=== PATIENT | female | born 1940 | race Caucasian/White ===

== ENCOUNTER 2017-06-01 14:22 | Observation (INO) ==
[2017-06-01 14:45] VITALS: BMI 23.4
[2017-06-01] MEDS ORDERED: SALINE FLUSH 10ml SYRINGE ONE (14:51)
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
--- NOTE | 2017-06-01 16:34 | Nuclear Medicine Report ---
Indication: Chest Pain PROCEDURE: NM pul vent and perfuse: Comparison: Chest x-ray dated May 31, 2017 Technique: The patient received 41.4mCi aerosolized Tc-99m DTPA prior to obtaining ventilation images. Next, 6.1 mCi of Tc-99m MAA was administered intravenously prior to obtaining perfusion images in the standard 8 views. A chest x-ray from 03/31/2017 was reviewed. Findings: Ventilation images demonstrate radiotracer uptake throughout both lungs with a relative decrease in uptake both upper lobes. Perfusion images also demonstrate good uptake bilaterally. There is a relative decrease in radiotracer uptake in both upper lobes which correspond to defects seen on the ventilation images. These are subsegmental areas of perfusion deficit. There are no segmental perfusion defects. Impression: Low probability lung ventilation/perfusion scan for pulmonary embolus (approximately 15% probability). .
[2017-06-01 17:13] VITALS: BP 123/59; RESP 20; TEMP 99.1; O2SAT 95
[2017-06-01 17:47] VITALS: PULSE 102
[2017-06-01] MEDS ORDERED: KETOROLAC 30 MG/ML INJECTION IVP PRN (18:08)
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
--- NOTE | 2017-06-02 08:08 | XRay Report ---
INDICATION: chest pain PROCEDURE: CHEST 2-VIEWS UPRIGHT (PA & LAT) Encounter: Initial COMPARISON: May 05, 2017 FINDINGS: New airspace consolidation in the left lower lobe with a small left effusion. Right lung is grossly clear. No pneumothorax. Cardiac silhouette is mildly enlarged, new from the prior study. Mediastinal contours and pulmonary vascularity are within normal limits. Impression: 1. Left lower lobe pneumonia or aspiration with a small effusion. 2. Enlarged cardiac silhouette could represent pericardial effusion given the interval change. .
--- NOTE | 2017-06-02 10:45 | Echocardiogram ---
DATE OF PROCEDURE June 01, 2017 This is a two-dimensional echo with spectral Doppler, color-flow and M-mode. It was obtained in a patient with chest pain and shortness of breath. Left atrial dimension is normal. Left ventricle end-diastolic dimension is normal. Left ventricular wall thickness is normal. LV systolic function is normal with ejection fraction of 63%. Right atrium is normal. Right ventricle is normal. Aortic root dimension is normal. Mitral valve is morphologically normal with trace of mitral regurgitation. Aortic valve is a trileaflet structure with no stenosis or insufficiency. Tricuspid valve shows trace of tricuspid regurgitation with normal estimated pulmonary artery systolic pressure of 27. Pulmonary valve shows no pulmonary insufficiency. There is a large pericardial effusion with no right ventricular diastolic collapse. Right atrium appears to have mild collapsing. IMPRESSION 1. Normal LV systolic function with ejection fraction of about 63%. 2. Large pericardial effusion with early signs of tamponade with mild collapsing of the right atrial free wall. 3. Trace of mitral regurgitation. 4. Trace of tricuspid regurgitation with normal estimated pulmonary artery systolic pressure of 27. MTDD
== END 2017-06-01 19:05 | disposition short-term general hospital (02) ==
LOC: MED
PROVIDERS: ADMIT Internal Medicine Cardiovascular Disease; ATTEND Internal Medicine Cardiovascular Disease

== ENCOUNTER 2017-07-26 13:04 | Observation (INO) ==
[2017-07-26 13:36] VITALS: BMI 22.4
--- NOTE | 2017-07-26 15:30 | XRay Report ---
Indication: left chest pain PROCEDURE: XR chest w decubitus: Encounter: Initial Comparison: July 21, 2017 Findings: Interval increase in a small to moderate left pleural effusion with left lower lobe compressive atelectasis. Right lung is clear. No pneumothorax. Heart size and mediastinal contours are stable. Pulmonary vascularity is unchanged. The decubitus view shows the fusion to be freely layering. Impression: Increasing small to moderate left effusion. .
[2017-07-26] MEDS: PANTOPRAZOLE 20 MG TABLET PO SCH (18:38)
[2017-07-26] MEDS: IBUPROFEN 800 MG TABLET PO PRN (21:49)
[2017-07-26] MEDS: SALINE FLUSH 10ml SYRINGE IV PRN (21:50)
[2017-07-27 00:44] VITALS: RESP 16
[2017-07-27] MEDS: SALINE FLUSH 10ml SYRINGE IV PRN (04:13)
[2017-07-27] MEDS: PANTOPRAZOLE 20 MG TABLET PO SCH (06:13)
[2017-07-27] MEDS: IBUPROFEN 800 MG TABLET PO PRN (06:16)
[2017-07-27 07:24] VITALS: BP 130/65; TEMP 97.3; O2SAT 97
[2017-07-27 08:07] VITALS: PULSE 83
--- NOTE | 2017-07-27 09:03 | Consultation ---
DATE OF CONSULTATION 07/26/2017. HISTORY OF PRESENT ILLNESS This patient is 76 years old. This patient was seen at [facility] emergency room on 05/05/2017 with a history that she had chest pain when she would take a deep breath. Chest x-ray at this time did not show any pleural effusion. Chest x-ray was normal. EKG was normal. The patient was thought at this time to probably have costochondritis. The patient was hospitalized at [facility] on 06/01/2017. An echocardiogram performed at this time showed a large pericardial effusion with the beginning of tamponade. The patient was having chest pain at this time which was thought to be secondary to the pericardial effusion. The patient had some dyspnea which was thought to be secondary to the pericardial effusion. The patient was transferred to [place] to undergo a pericardial window. The patient stated at this time that her chest pain she was having was worse with deep inspiration. The patient states that she did undergo a pericardial window on 06/02/[address] Arellano. This was performed at [facility]. The patient came into [facility] for emergency room visit on 2016. The patient had a chief complaint of left-sided abdominal pain at this time. These symptoms had begun on 07/19/2017. The patient states today that this left upper quadrant abdominal pain was worse when she took a deep breath. The patient did undergo a chest x-ray on 07/21/2017 which did show a small left pleural effusion which was increased compared to the previous chest x-ray. The patient had a CT scan of the abdomen and pelvis at this time which showed no acute disease process. The emergency room provider did talk with the patient about undergoing an imaging study to look for pulmonary embolism but the patient did decline this. The emergency room provider discussed the case with Dr. Lagos. Dr. Lagos did make plans for the patient to follow up with him in the office. Some nonsteroidal anti-inflammatory therapy was started in the emergency room. The patient was then sent home from the emergency room with prescriptions for naproxen and [place]. The patient states today that her left upper quadrant abdominal pain and left back pain which is worse with deep breaths has been improving every day since . This pain is even less today than it was yesterday. The patient is not completely pain-free but the pain is improving. The patient states she did go in and have an office visit with Dr. Lagos today. She told Dr. Lagos that her pain was less. The patient states that Dr. Lagos was ready to send her out of the office when he was informed of some echocardiogram findings from the office visit today. He then decided to admit the patient to [facility]. The echocardiogram findings are unknown to me at this time. The patient did undergo a chest x-ray today following admission to [facility]. This does show a small to moderate left pleural effusion. The left pleural effusion is a little bit bigger today than it was on 07/21/2017. The patient is not having any dyspnea or shortness breath or difficulty breathing at this time. Oxygen saturations are good on room air. Oxygen saturation was 98% on room air at the time of admission to the hospital today. PHYSICAL EXAMINATION VITAL SIGNS: Temperature is 96.9 degrees Fahrenheit temporal. Pulse is 78. Respiratory rate is 18. Blood pressure is 123/62. Oxygen saturation at the time of admission to the hospital was 98% on room air. Most recent oxygen saturation was 94% on room air. CHEST: The patient has slightly decreased breath sounds at her left lung base at auscultation of the chest. There are no wheezes, rales or rhonchi. IMAGING DATA The patient did undergo a chest x-ray today at [facility]. This shows a small to moderate left pleural effusion. Decubitus views show some layering of the fluid. The small to moderate left pleural effusion is a little bit larger than it was on the chest x-ray performed on 07/21/2017. IMPRESSION 1. Small left pleural effusion. 2. Left upper quadrant abdominal pain and left back pain which is worse when the patient takes a deep breath. RECOMMENDATION The patient will undergo further evaluation by Dr. Lagos tomorrow. I would be happy to perform ultrasound-guided left thoracentesis if this would be useful in the further evaluation and treatment of this patient. PATIENT EDUCATION I did inform the patient today of the nature of a thoracentesis procedure. Expected benefits of a left ultrasound-guided left thoracentesis were reviewed with her. Alternatives were reviewed. Potential risks and complications were also reviewed including bleeding and pneumothorax. ALINE
--- NOTE | 2017-07-27 12:04 | Discharge Summary ---
<Shira Perla M - Last Filed: 07/27/17 12:01> Discharge Information Date of admission: 07/26/17 13:04 Anticipated date of discharge: 07/27/17 Attending Physician: Adarsh Lagos MD Primary care physician: Shaquille Spring MD Consults: 07/26/17 15:42 Physician Consult [CONS] Routine Consulting Provider: Xavier Crawford Reason For Exam: left pleural effusion Ordering Provider has Notified Residential Property Manager: Yes - Laboratory Labs: 07/27/17 04:10 07/27/17 04:10 Laboratory Results - last 24 hr 07/26/17 07/26/17 07/26/17 15:01 15:01 15:01 WBC 8.1 RBC 4.55 Hgb 12.4 Hct 39.6 MCV 87.0 MCH 27.3 MCHC 31.3 RDW Std Deviation 46.9 Plt Count 223 D MPV 9.8 Immature Gran % (Auto) 1.0 H Neut % (Auto) 52.0 Lymph % (Auto) 38.9 Bond % (Auto) 4.9 Eos % (Auto) 2.7 Baso % (Auto) 0.5 Neut # 4.2 Lymph # 3.2 Bond # 0.4 Eos # 0.2 Baso # 0.0 Abs Immat Gran (auto) 0.08 H Turbidity < 20 Sodium 144 Potassium 4.3 Chloride 110 H Carbon Dioxide 25 Anion Gap 9 BUN 13.0 Creatinine 0.7 GFR Calculation 82 BUN/Creatinine Ratio 19 Glucose 83 Calculated Osmolality 276 Calcium 9.4 Magnesium 2.3 Total Bilirubin 0.30 Icterus Index < 2 AST 21 ALT 25 Alkaline Phosphatase 112 Troponin I < 0.012 Total Protein 7.0 Albumin 3.5 Globulin 3.5 Albumin/Globulin Ratio 1.0 L Specimen Hemolysis < 15 < 15 07/27/17 07/27/17 04:10 04:10 WBC 6.4 RBC 3.87 L Hgb 10.9 L D Hct 33.9 L D MCV 87.6 MCH 28.2 MCHC 32.2 RDW Std Deviation 45.6 Plt Count 468 H D MPV 9.3 L Immature Gran % (Auto) Neut % (Auto) Lymph % (Auto) Bond % (Auto) Eos % (Auto) Baso % (Auto) Neut # Lymph # Bond # Eos # Baso # Abs Immat Gran (auto) Turbidity < 20 Sodium 144 Potassium 4.4 Chloride 110 H Carbon Dioxide 24 Anion Gap 10 BUN 16.0 Creatinine 0.7 GFR Calculation 82 BUN/Creatinine Ratio 23 Glucose 89 Calculated Osmolality 277 Calcium 9.1 Magnesium 2.4 H Total Bilirubin Icterus Index < 2 AST ALT Alkaline Phosphatase Troponin I Total Protein Albumin Globulin Albumin/Globulin Ratio Specimen Hemolysis 92 H - Radiology Radiology: Date of Exam: 07/26/17 Ordering Provider: Shira Perla APRN Type of Exam(s): XR chest w decubitus Reason for Exam(s): left chest pain Indication: left chest pain PROCEDURE: XR chest w decubitus: Encounter: Initial Comparison: July 21, 2017 Findings: Interval increase in a small to moderate left pleural effusion with left lower lobe compressive atelectasis. Right lung is clear. No pneumothorax. Heart size and mediastinal contours are stable. Pulmonary vascularity is unchanged. The decubitus view shows the fusion to be freely layering. Impression: Increasing small to moderate left effusion. History of Present Illness HPI: Jacki is a 76 year old female who is known to Dr. Lagos with a history of pericardial effusion with pericardial window in May of 2017. She was seen in the clinic yesterday by Dr. Lagos and underwent echo which revealed trace pericardial effusion and large pleural effusion. She was admitted to observation for pericarditis and chest xray with decubitus view and surgical consultation for possible thoracentesis if indicated. Hospital Course This is a general summary of the patient's hospital course. For more details refer to the complete medical record. Hospital course: She reported left sided chest pain and was started on Ibuprofen 800mg Q8H and Protonix 20mg BID for pericarditis after being seen by Dr. Crawford. X-ray revealed small to moderate pleural effusion on the left. Dr. Crawford felt as though this could be drained or left alone based on patient's clinical presentation. Today after having 2 doses of Ibuprofen she is essentially pain free with deep breathes and activity. We will plan to follow up with outpatient chest x-ray in 2 weeks. Exam Vital signs: Temperature 97.3 F 07/27/17 07:23 Pulse Rate 83 07/27/17 08:00 Respiratory Rate 16 07/27/17 07:23 Blood Pressure 130/65 07/27/17 07:23 Pulse Oximetry 97 07/27/17 07:23 - Constitutional no acute distress, well nourished, well developed, cooperative - Routine HEENT Exam Head: Present: normocephalic ENT: Present: mucous membranes moist - Routine Neck Exam Absent: JVD, carotid bruit - Routine Chest/Breast/Axilla Exam Chest wall: Present: tenderness - Routine Respiratory Exam Present: CTA bilaterally, diminished air movement (right side). Absent: rales, wheezes - Routine Cardiovascular Exam Present: RRR, no murmur. Absent: JVD - Routine Abdominal Exam Present: soft, normoactive bowel sounds - Routine Extremities Exam Present: no edema - Routine Skin Exam Present: intact, dry, warm - Routine Neurological Exam Present: alert, oriented X3 - Routine Psychiatric Exam Present: normal affect, normal thought process Results 07/27/17 04:10 07/27/17 04:10 Cardiac Enzymes 07/26/17 07/26/17 Range/Units 15:01 15:01 AST 21 (14-36) U/L Troponin I < 0.012 (0-0.12) ng/ml CBC 07/26/17 07/27/17 Range/Units 15:01 04:10 WBC 8.1 6.4 (4.5-11.0) T/MM3 RBC 4.55 3.87 L (4.00-5.20) M/MM3 Hgb 12.4 10.9 L D (12-16) GM/DL Hct 39.6 33.9 L D (36-46) % Plt Count 223 D 468 H D (130-400) T/MM3 Neut # 4.2 (1.8-7.7) T/MM3 Lymph # 3.2 (1-4.8) T/MM3 Bond # 0.4 (0-0.8) T/MM3 Eos # 0.2 (0-0.5) T/MM3 Baso # 0.0 (0-0.2) T/MM3 Comprehensive Metabolic Panel 07/26/17 07/27/17 Range/Units 15:01 04:10 Sodium 144 144 (134-144) MEQ/L Potassium 4.3 4.4 (3.6-5) MEQ/L Chloride 110 H 110 H (98-107) MEQ/L Carbon Dioxide 25 24 (22-30) MEQ/L BUN 13.0 16.0 (7-17) MG/DL Creatinine 0.7 0.7 (0.7-1.2) MG/DL Glucose 83 89 (65-110) MG/DL Calcium 9.4 9.1 (8.4-10.2) MG/DL AST 21 (14-36) U/L ALT 25 (9-52) U/L Alkaline Phosphatase 112 (38-126) U/L Total Protein 7.0 (6.3-8.2) G/DL Albumin 3.5 (3.5-5.0) G/DL Intake and Output 07/26/17 07/27/17 07/27/17 22:59 06:59 14:59 Intake Total 350 / 350 Balance 350 / 350 Intake: Oral 350 / 350 Other: Urine Appearance Clear Urine Color Yellow Urine Odor Normal # Voids 2 1 Weight 121 lb 11.123 oz Patient Weight 07/28/17 06:59 Weight 121 lb 11.123 oz - EKG Interpretation EKG: WNL, sinus rhythm Discharge Plan - Med Rec/Dispo Referrals/Follow Up: Adarsh Lagos MD [Physician] - 08/22/17 11:40 am [place] Instructions: Pleural Effusion (DC), Acute Pericarditis (DC), Noncardiac Chest Pain (DC) Additional Instructions: Chest xray on 08/10/2017 for follow up of left pleural effusion Prescriptions: New Ibuprofen [Motrin] 800 mg PO Q8H PRN #27 tab PRN Reason: Pain Pantoprazole Sodium [Protonix] 20 mg PO ACBID #28 tablet.dr Continue Multivitamin with Minerals [Daily Vitamin Formula-Minerals] 1 tab PO DAILY #0 Garlic 1 tab PO DAILY #0 Hydrocodone/APAP 7.5/325 [[place] 7.5/325] 1 tab PO Q4HR PRN #18 tab PRN Reason: Pain - Disposition 01 Discharged Home, Self-Care <Adarsh Lagos - Last Filed: 07/28/17 14:15> Discharge Information Date of admission: 07/26/17 13:04 Attending Physician: Adarsh Lagos MD Primary care physician: Shaquille Spring MD Consults: 07/26/17 15:42 Physician Consult [CONS] Routine Consulting Provider: Xavier Crawford Reason For Exam: left pleural effusion Ordering Provider has Notified Residential Property Manager: Yes - Laboratory Labs: 07/27/17 04:10 07/27/17 04:10 Hospital Course This is a general summary of the patient's hospital course. For more details refer to the complete medical record. Exam Vital signs: Temperature 97.3 F 07/27/17 07:23 Pulse Rate 83 07/27/17 08:00 Respiratory Rate 16 07/27/17 07:23 Blood Pressure 130/65 07/27/17 07:23 Pulse Oximetry 97 07/27/17 07:23 Results 07/27/17 04:10 07/27/17 04:10 Discharge Plan - Med Rec/Dispo - Attestation Attestation Narrative: 07/28/17 14:15 Recommendation After examining the patient I agree with the above assessment. I am involved in the formulation of the patient's plan of care.
== END 2017-07-27 14:00 | disposition home or self-care (01) ==
LOC: MED
PROVIDERS: ADMIT Internal Medicine Cardiovascular Disease; ATTEND Internal Medicine Cardiovascular Disease